=== PATIENT | female | born 1955 | race Caucasian/White ===

== ENCOUNTER 2017-12-07 07:43 | Outpatient (CLI) | payer OTHER ==
[~2017-12-07 07:43] MED LIST: ERGO400C
[2017-12-07 08:58] LABS: C-REACTIVE PROTEIN 0.58 MG/DL (0.0-0.5); CHOL/HDL RATIO 3.2 (0.00-4.99); CHOLESTEROL 171 MG/DL (0-200); HDL CHOLESTEROL 53 MG/DL (35-60); LDL CHOLESTEROL 100 MG/DL (50-100); TRIGLYCERIDES 129 MG/DL (20-135)
[2017-12-07 11:58] LABS: PARATHYROID HORMONE 105 PG/ML (11-67)
[2017-12-08 08:16] LABS: THYROID PEROXIDASE AB 215 IU/mL (0-34)
[2017-12-08 11:13] LABS: ANTITHYROGLOBULIN AB <1.0 IU/mL (0.0-0.9)
== END 2017-12-07 23:59 | disposition home or self-care (01) ==
LOC: LAB 07:43
PROVIDERS: ATTEND Family Medicine
DX: R94.6 Abnormal results of thyroid function studies (principal); E55.9 Vitamin D deficiency, unspecified
CPT/HCPCS: 36415; 80061; 82306; 82330; 82607; 82746; 83970; 84432; 84439; 84443; 85651; 86140; 86376; 86800

== ENCOUNTER 2018-06-28 08:17 | Outpatient (CLI) | payer OTHER ==
[2018-06-28 09:33] LABS: BASOPHILS % (AUTO) 0.4 % (0-1); EOSINOPHILS # (AUTO) 0.3 X10'3 (0-0.9); EOSINOPHILS % (AUTO) 5.2 % (0-6); HEMATOCRIT 41.3 % (35.0-45.0); LYMPHOCYTES # (AUTO) 1.8 X10'3 (1.1-4.8); MEAN CORPUSCULAR HEMOGLOBIN 30.5 PG (27.0-31.0); MEAN CORPUSCULAR HGB CONC 33.9 % (33.0-36.5); MEAN PLATELET VOLUME 8.1 FL (7.4-10.4); MONOCYTES # (AUTO) 0.4 X10'3 (0-0.9); MONOCYTES % (AUTO) 8.2 % (2-12); NEUTROPHILS # (AUTO) 2.6 X10'3 (1.8-7.7); NEUTROPHILS % (AUTO) 51.2 % (42-75); PLATELET COUNT 247 X10'3 (140-440); RED BLOOD COUNT 4.59 X10'6 (4.20-5.60); RED CELL DISTRIBUTION WIDTH 11.9 % (11.5-14.5); WHITE BLOOD COUNT 5.1 X10'3 (4.5-11.0)
[2018-06-28 09:51] LABS: ALANINE AMINOTRANSFERASE 48 U/L (12-78); ALBUMIN 4.2 G/DL (3.4-5.0); ALKALINE PHOSPHATASE 99 IU/L (46-116); ANION GAP 11 (8-16); ASPARTATE AMINO TRANSFERASE 27 U/L (10-37); BILIRUBIN,TOTAL 1.5 MG/DL (0.1-1.0); BLOOD UREA NITROGEN 18 MG/DL (7-18); CALCIUM 9.1 MG/DL (8.5-10.1); CHLORIDE 101 MMOL/L (99-107); CHOL/HDL RATIO 2.8 (0.00-4.99); CHOLESTEROL 173 MG/DL (0-200); GLUCOSE 96 MG/DL (70-104); HDL CHOLESTEROL 61 MG/DL (35-60); LDL CHOLESTEROL 95 MG/DL (50-100); POTASSIUM 4.1 MMOL/L (3.5-5.1); SODIUM 139 MMOL/L (135-145); TOTAL CARBON DIOXIDE 27.5 MMOL/L (24-32); TOTAL PROTEIN 8.5 G/DL (6.4-8.2); TRIGLYCERIDES 151 MG/DL (20-135); eGFR 64 ML/MIN
[2018-06-28 11:05] LABS: PARATHYROID HORMONE 81.6 PG/ML (11-67)
[2018-06-29 05:32] LABS: THYROID PEROXIDASE AB 197 IU/mL (0-34); THYROXINE (T4) 8.1 ug/dL (4.5-12.0); TRIIODOTHYRONINE (T3) 134 ng/dL (71-180); VITAMIN D, 25-HYDROXY 31.5 ng/mL (30.0-100.0)
[2018-06-29 08:15] LABS: MICROALB/CRT, RATIO <15.7 mg/g creat (0.0-30.0)
[2018-06-29 11:15] LABS: ANTITHYROGLOBULIN AB <1.0 IU/mL (0.0-0.9)
== END 2018-06-28 23:59 | disposition home or self-care (01) ==
LOC: LAB 08:17
PROVIDERS: ATTEND Family Medicine
DX: Z00.01 Encounter for general adult medical examination with abnormal findings (principal); N25.81 Secondary hyperparathyroidism of renal origin; R53.83 Other fatigue; E06.3 Autoimmune thyroiditis; E55.9 Vitamin D deficiency, unspecified
CPT/HCPCS: 36415; 80053; 80061; 82043; 82306; 82330; 82570; 82607; 82746; 83735; 83970; 84436; 84442; 84480; 85025; 86140; 86376

== ENCOUNTER 2018-08-29 08:10 | Outpatient (CLI) | payer OTHER ==
[2018-08-29 10:13] LABS: C-REACTIVE PROTEIN 0.45 MG/DL (0.0-0.5)
== END 2018-08-29 23:59 | disposition home or self-care (01) ==
LOC: RAD 08:10
PROVIDERS: ATTEND Family Medicine
DX: M77.32 Calcaneal spur, left foot (principal); E06.3 Autoimmune thyroiditis
CPT/HCPCS: 36415; 73610; 84439; 84443; 84550; 85651; 86140

== ENCOUNTER 2018-08-29 08:24 | Outpatient (CLI) | payer OTHER ==
[2018-08-30 08:15] LABS: THYROID PEROXIDASE AB 199 IU/mL (0-34)
[2018-08-30 09:17] LABS: ANTITHYROGLOBULIN AB <1.0 IU/mL (0.0-0.9)
== END 2018-08-29 23:59 | disposition home or self-care (01) ==
LOC: LAB 08:24
PROVIDERS: ATTEND Otolaryngology
DX: G47.33 Obstructive sleep apnea (adult) (pediatric) (principal); E21.0 Primary hyperparathyroidism; E06.3 Autoimmune thyroiditis
CPT/HCPCS: 36415; 86376

== ENCOUNTER 2018-11-28 08:28 | Outpatient (CLI) | payer OTHER ==
[2018-11-28 10:27] LABS: PHOSPHORUS 3.8 MG/DL (2.3-4.5)
== END 2018-11-28 23:59 | disposition home or self-care (01) ==
LOC: LAB 08:28
PROVIDERS: ATTEND Internal Medicine Endocrinology, Diabetes & Metabolism
DX: E55.9 Vitamin D deficiency, unspecified (principal); E21.3 Hyperparathyroidism, unspecified; Z98.890 Other specified postprocedural states; Z88.8 Allergy status to other drugs, medicaments and biological substances
CPT/HCPCS: 82330; 82652; 83735; 84100; 84155; 84165; 84439; 84443

== ENCOUNTER 2018-11-30 08:27 | Outpatient (CLI) | payer OTHER ==
[2018-11-30 10:16] LABS: EOSINOPHILS # (AUTO) 0.2 X10'3 (0-0.9); EOSINOPHILS % (AUTO) 3.9 % (0-6); HEMATOCRIT 38.7 % (35.0-45.0); HEMOGLOBIN 13.2 g/dl (12.0-16.0); LYMPHOCYTES # (AUTO) 1.7 X10'3 (1.1-4.8); LYMPHOCYTES % (AUTO) 34.3 % (21-51); MEAN CORPUSCULAR HEMOGLOBIN 30.7 PG (27.0-31.0); MEAN CORPUSCULAR HGB CONC 34.2 g/dL (33.0-36.5); MEAN CORPUSCULAR VOLUME 89.9 FL (78-98); MEAN PLATELET VOLUME 8.2 FL (7.4-10.4); MONOCYTES # (AUTO) 0.5 X10'3 (0-0.9); MONOCYTES % (AUTO) 9.6 % (2-12); NEUTROPHILS # (AUTO) 2.6 X10'3 (1.8-7.7); NEUTROPHILS % (AUTO) 51.2 % (42-75); PLATELET COUNT 234 X10'3 (140-440); RED CELL DISTRIBUTION WIDTH 12.5 % (11.5-14.5)
[2018-11-30 10:46] LABS: C-REACTIVE PROTEIN 0.49 MG/DL (0.0-0.5)
== END 2018-11-30 23:59 | disposition home or self-care (01) ==
LOC: LAB 08:27
PROVIDERS: ATTEND Family Medicine
DX: M25.572 Pain in left ankle and joints of left foot (principal); E55.9 Vitamin D deficiency, unspecified; N25.81 Secondary hyperparathyroidism of renal origin; R53.83 Other fatigue
CPT/HCPCS: 36415; 82330; 84550; 85025; 85651; 86140

== ENCOUNTER 2018-12-03 08:24 | Outpatient (CLI) | payer OTHER | END 2018-12-03 23:59 | disposition home or self-care (01) | LOC: VAS 08:24 | PROVIDERS: ATTEND Family Medicine | DX: M17.0 Bilateral primary osteoarthritis of knee (principal); M25.462 Effusion, left knee | CPT/HCPCS: 73565; 93970 ==

== ENCOUNTER 2019-05-21 08:02 | Outpatient (CLI) | payer OTHER ==
[2019-05-21 08:45] LABS: BASOPHILS # (AUTO) 0.1 X10'3 (0-0.2); BASOPHILS % (AUTO) 1.2 % (0-1); EOSINOPHILS # (AUTO) 0.2 X10'3 (0-0.9); EOSINOPHILS % (AUTO) 3.7 % (0-6); HEMATOCRIT 39.9 % (35.0-45.0); HEMOGLOBIN 13.5 g/dl (12.0-16.0); LYMPHOCYTES # (AUTO) 1.7 X10'3 (1.1-4.8); LYMPHOCYTES % (AUTO) 34.4 % (21-51); MEAN CORPUSCULAR HEMOGLOBIN 31.1 PG (27.0-31.0); MEAN CORPUSCULAR HGB CONC 33.8 g/dL (33.0-36.5); MEAN CORPUSCULAR VOLUME 91.9 FL (78-98); MEAN PLATELET VOLUME 8.1 FL (7.4-10.4); MONOCYTES # (AUTO) 0.5 X10'3 (0-0.9); MONOCYTES % (AUTO) 10.3 % (2-12); NEUTROPHILS # (AUTO) 2.5 X10'3 (1.8-7.7); NEUTROPHILS % (AUTO) 50.4 % (42-75); PLATELET COUNT 245 X10'3 (140-440); RED BLOOD COUNT 4.34 X10'6 (4.20-5.60); RED CELL DISTRIBUTION WIDTH 12.3 % (11.5-14.5)
[2019-05-21 08:56] LABS: C-REACTIVE PROTEIN 0.5 MG/DL (0.0-0.5)
== END 2019-05-21 23:59 | disposition home or self-care (01) ==
LOC: LAB 08:02
PROVIDERS: ATTEND Family Medicine
DX: N25.81 Secondary hyperparathyroidism of renal origin (principal); E55.9 Vitamin D deficiency, unspecified; M25.572 Pain in left ankle and joints of left foot; R53.83 Other fatigue
CPT/HCPCS: 36415; 82330; 84550; 85025; 85651; 86140